=== PATIENT | male | born 1945 | race Caucasian/White ===

== ENCOUNTER 2017-02-23 08:44 | Emergency (ER) | payer OTHER ==
[~2017-02-23] VITALS: Ht 182.9 cm; Wt 93.0 kg
[~2017-02-23 08:44] MED LIST: ASPIRIN325; CRESTOR10 MG PO; FOLIC ACID; GLUCOPHAGE500 MG PO; KEFLEX500 MG PO; LEVAQUIN 500 M500 MG PO; LIPITOR 20 MG T20 M1 PO; VENTOLIN HFA 1818 GM INH; VICODIN 5-5001 EACH PO; VITAMIN D1000 UNI1 PO; VITAMINC500 PO; ZESTRIL10 MG PO; ZOFRAN ODT4 MG SUBLING
[2017-02-23 08:53] VITALS: BP 163/96
[2017-02-23 09:46] LABS: ABSOLUTE BASOPHILS 0.1 thou/uL (0.0-0.2); ABSOLUTE EOSINOPHILS 0.1 thou/uL (0.0-0.7); ABSOLUTE LYMPHOCYTES 1.8 thou/uL (0.8-5.3); ABSOLUTE MONOCYTES 0.8 thou/uL (0.0-1.2); ABSOLUTE NEUTROPHILS 8.1 thou/uL (1.6-8.1); BASOPHILS 0.5 %; HEMATOCRIT 44.1 % (42.0-52.0); HEMOGLOBIN 15.1 gm/dL (14.0-18.0); LYMPHOCYTES 16.9 %; MCHC 34.2 g/dL (28.0-37.0); MCV 87.9 fL (80.0-100.0); MONOCYTES 7.4 %; NUCLEATED RBCS 0 /100WBC; PLATELET COUNT* 285 thou/uL (150-400); POLYS 74.2 %; RBC 5.02 mil/uL (4.50-6.00); RDW-CV 12.5 % (10.5-14.5); WBC 10.9 thou/uL (4.0-11.0)
[2017-02-23 10:02] LABS: POTASSIUM 3.9 mmol/L (3.5-5.1)
[2017-02-23 10:07] LABS: TOTAL BILIRUBIN 0.5 mg/dL (<0.1-1.0); TOTAL PROTEIN 7.4 g/dL (6.4-8.2)
[2017-02-23 10:48] VITALS: BP 163/96
== END 2017-02-23 10:49 | disposition home or self-care (01) ==
LOC: M.ERS 08:44 → M.TBA-ER 09:33 → M.ERS 09:33
PROVIDERS: Personal Emergency Response Attendant
DX: K59.00 Constipation, unspecified (principal); E11.8 Type 2 diabetes mellitus with unspecified complications; I10 Essential (primary) hypertension; E78.5 Hyperlipidemia, unspecified

== ENCOUNTER 2018-10-10 05:20 | Emergency (ER) | payer OTHER ==
[~2018-10-10] VITALS: Ht 177.8 cm; Wt 93.0 kg
[2018-10-10 05:26] VITALS: BP 170/93
== END 2018-10-10 06:01 | disposition home or self-care (01) ==
LOC: M.ERS 05:20
DX: S63.592A Other specified sprain of left wrist, initial encounter (principal); I10 Essential (primary) hypertension; E11.9 Type 2 diabetes mellitus without complications; E78.5 Hyperlipidemia, unspecified; Z87.01 Personal history of pneumonia (recurrent); W18.39XA Other fall on same level, initial encounter; Y93.89 Activity, other specified; Y92.89 Other specified places as the place of occurrence of the external cause; Y99.8 Other external cause status